=== PATIENT | male | born 1940 | race Caucasian/White ===

== ENCOUNTER 2025-01-13 09:22 | Emergency (ER) | payer MEDICARE, MEDICAID ==
[~2025-01-13] VITALS: Ht 157.5 cm; Wt 77.0 kg
[2025-01-13 09:44] VITALS: TEMP 97.9
[2025-01-13 09:55] VITALS: BP 137/54; PULSE 81; RESP 18; O2SAT 98
[2025-01-13] MEDS ORDERED: CLOT15CR29 TP (10:10)
== END 2025-01-13 10:22 | disposition home or self-care (01) ==
LOC: EMS 09:24
DX: B35.3 Tinea pedis (principal); I10 Essential (primary) hypertension; K21.9 Gastro-esophageal reflux disease without esophagitis; Z98.890 Other specified postprocedural states; Z85.830 Personal history of malignant neoplasm of bone; Z79.899 Other long term (current) drug therapy
CPT/HCPCS: 99282; Z7502